=== PATIENT | male | born 1980 | race Caucasian/White ===

== ENCOUNTER → 2020-04-04 | Outpatient (CLI) | payer MEDICARE ==
[~2020-04-04] MED LIST: EXCETAB33 PO; IBUP200C25 PO
== END ==
LOC: EDUNIT# 09:55 → M LABSMTC 11:10
PROVIDERS: ATTEND Anesthesiology
DX: Z01.812 Encounter for preprocedural laboratory examination (principal); Z20.828 Contact with and (suspected) exposure to other viral communicable diseases
CPT/HCPCS: C9803; U0003

== ENCOUNTER 2020-04-09 09:19 | Day surgery (SDC) | payer MEDICARE ==
[~2020-04-09] VITALS: Ht 190.5 cm; Wt 112.5 kg
[~2020-04-09 09:19] MED LIST changes: +LR 1,000 ML IV ONE; +ceFAZolin SOD 2 GM in IV 1 EA IV ONE
[2020-04-09] MEDS ORDERED: LIDOCAINE 2% 100MG/5ML SDV (FOR ANES.) As Ordered ONE (10:46)
[2020-04-09] MEDS ORDERED: propofoL 200 MG/20 ML VIAL As Ordered ONE (10:46)
[2020-04-09] MEDS ORDERED: fentaNYL 250 MCG/5 ML INJECTION (J3010) As Ordered ONE (10:46)
[2020-04-09] MEDS ORDERED: ROCURONIUM BROMIDE 50 MG/5 ML VIAL As Ordered ONE (10:46)
[2020-04-09] MEDS ORDERED: MIDAZOLAM INJ 2MG/2ML VIAL (J2250 PER 1MG) As Ordered ONE (10:47)
[2020-04-09] MEDS ORDERED: BUPIVACAINE/EPIN 0.5% 30 ML VIAL As Ordered ONE (11:41)
[2020-04-09] MEDS ORDERED: ePHEDrine SULFATE 25 MG/5 ML(5MG/ML) SYRINGE As Ordered ONE (12:33)
[2020-04-09] MEDS ORDERED: ONDANSETRON 4MG/2ML VIAL As Ordered ONE (12:44)
[2020-04-09] MEDS ORDERED: dexameTHASONE 4 MG/ML 1ML VIAL (J1100 PER 1MG) As Ordered ONE (12:44)
[2020-04-09] MEDS ORDERED: KETOROLAC 60MG 2ML VIAL As Ordered ONE (12:44)
[2020-04-09] MEDS ORDERED: SUGAMMADEX SODIUM 500 MG/5 ML VIAL (BRIDION) As Ordered ONE (12:44)
[2020-04-09] MEDS ORDERED: fentaNYL 100 MCG/2 ML INJECTION (J3010) IV PRN (14:00)
[2020-04-09] MEDS ORDERED: ONDANSETRON 4MG/2ML VIAL IV PRN (14:00)
[2020-04-09] MEDS ORDERED: LR 1,000 ML IV SCH (14:00)
[2020-04-09] MEDS ORDERED: PERCOCET 5MG/325MG TAB PO PRN (14:00)
[2020-04-09] MEDS ORDERED: NORCO, ANEXSIA 5/325MG TABLET (HYDROcodone/ACETAMINOPHEN) PO PRN (14:00)
[2020-04-09] MEDS ORDERED: METOCLOPRAMIDE INJ 10MG/2ML VIAL (J2765 PER 1) IV PRN (14:00)
[2020-04-09] MEDS ORDERED: MORPHINE 2 MG/ML 1ML VIAL (J2270) IV PRN (14:00)
[2020-04-09] MEDS ORDERED: PHENYLephrine HCL 500 MCG/5 ML (100MCG/ML) SYRINGE (J2370) As Ordered ONE (14:04)
[2020-04-09 14:10] VITALS: BP 171/84
--- NOTE | 2020-04-12 08:41 | RO ---
DATE OF OPERATION: 04/09/2020 PREOPERATIVE DIAGNOSIS: Incarcerated umbilical hernia. POSTOPERATIVE DIAGNOSIS: Incarcerated umbilical hernia. PROCEDURE: Robotic incarcerated umbilical hernia repair. SURGEON: Pedro Veras DO FINANCE OFFICER: None. ANESTHESIA: General. EBL: 5. COMPLICATIONS: None. INDICATIONS FOR PROCEDURE: The patient is a 39-year-old male who presents with an umbilical lump and pain, found to have incarcerated hernia. Recommendation was to proceed with robotic repair. Risks and benefits of the procedure not limited to, but including bleeding, infection, hernia recurrence, hernia formation, damage to surrounding structures, need for further surgery were discussed in detail with the patient. Informed consent was obtained and procedure was planned. PROCEDURE: The patient was brought back to operating room #7. After sufficient sedation the abdomen was sterilely prepped and draped. Next a time out was done to confirm proper patient, proper procedure. Following that, an 8 mm incision was made in the left lower quadrant and Veress needle was inserted, and the abdomen was insufflated to 15 mmHg. Veress needle was then removed and an 8 mm Optiview robotic port was used to gain access to the abdomen. Once the abdomen was entered two more ports were placed, one just left to the midline subxiphoid and one in the right upper quadrant. The ports were then connected to the robot. Next from the console, a horizontal incision was made to the preperitoneal space in the midline superior to the umbilicus. The preperitoneal space was dissected inferiorly and circumferentially around the umbilicus reducing the entire hernia sac. Once that was all completely reduced, the defect was closed with a running 0 Stratafix suture. The 3 x 4 cm ProGrip mesh was then placed into the preperitoneal space right against the fascia and covered with preperitoneal fat. The peritoneal defect was then closed with a running 2-0 V- Loc suture. The abdomen was then desufflated. Skin incisions were closed with 4- 0 Vicryl subcuticular sutures thus ending the procedure. BERTO
== END 2020-04-09 14:50 | disposition home or self-care (01) ==
LOC: M SDC 09:19
PROVIDERS: ATTEND Surgery
DX: K42.0 Umbilical hernia with obstruction, without gangrene (principal); K21.9 Gastro-esophageal reflux disease without esophagitis; G43.909 Migraine, unspecified, not intractable, without status migrainosus; G40.89 Other seizures; F41.9 Anxiety disorder, unspecified; F32.9 Major depressive disorder, single episode, unspecified; J45.909 Unspecified asthma, uncomplicated; Z79.899 Other long term (current) drug therapy; Z88.8 Allergy status to other drugs, medicaments and biological substances; Z91.040 Latex allergy status
CPT/HCPCS: 49653; C1781; J0690; J1100; J1885; J2250; J2405; J3010; S2900